=== PATIENT | male | born 1965 | race Two or more races ===

== ENCOUNTER 2017-11-02 12:51 | Emergency (ER) | payer BC ==
[2017-11-02 13:14] VITALS: BP 117/74; PULSE 81; RESP 16; TEMP 98.2; O2SAT 98
--- NOTE | 2017-11-02 13:46 | C.PDOC ---
History Of Present Illness 52 y/o male presents to the ER complaining of difficulty hearing in the left ear. Patient believes that he has wax in his ear. Patient denies having ear pain and trauma. Time Seen by Provider: 11/02/17 13:23 Chief Complaint (Nursing): ENT Problem History Per: Patient History/Exam Limitations: None Onset/Duration Of Symptoms: Days Current Symptoms Are (Timing): Still Present Severity: Moderate Past Medical History Reviewed: Historical Data, Nursing Documentation, Vital Signs Vital Signs: Last Vital Signs Temp 98.2 F 11/02/17 13:12 Pulse 81 11/02/17 13:12 Resp 16 11/02/17 13:12 BP 117/74 11/02/17 13:12 Pulse Ox 98 11/02/17 14:07 - Medical History PMH: Hypercholesterolemia (NO MEDS) Other Surgeries: Hx of surgeries - [facility] IRRIGATION OF EAR (12/29/13) Family History: States: No Known Family Hx - Social History Hx Tobacco Use: No Hx Alcohol Use: No Hx Substance Use: No - Immunization History Hx Tetanus Toxoid Vaccination: No Hx Influenza Vaccination: No Hx Pneumococcal Vaccination: No Review Of Systems Except As Marked, All Systems Reviewed And Found Negative. ENT: Positive for: Other (left ear discomfort) Physical Exam - Physical Exam Appears: Non-toxic, No Acute Distress Skin: Normal Color, Warm, Dry Head: Atraumatic, Normacephalic Eye(s): bilateral: Normal Inspection Ear(s): Left: TM Obscured By Wax (ear irrigated with tap water, TM is clear with succesful removal of cerumen, no signs of infection), Right: Normal Nose: Normal Oral Mucosa: Moist Neck: Supple Chest: Symmetrical Cardiovascular: Rhythm Regular Respiratory: Normal Breath Sounds, No Rales, No Rhonchi, No Wheezing Neurological/Psych: Oriented x3, Normal Speech ED Course And Treatment O2 Sat by Pulse Oximetry: 98 (RA) Pulse Ox Interpretation: Normal Medical Decision Making Medical Decision Making: Progress: Left ear irrigated with tap water. Cerumen was removed successfully. TM is clear , no signs of infection. Patient has been discharged and instructed to follow up with PMD in 2 days. Disposition Counseled Patient/Family Regarding: Studies Performed, Diagnosis, Need For Followup - Disposition Disposition: HOME/ ROUTINE Disposition Time: 13:43 Condition: STABLE Additional Instructions: follow up with your doctor in 2 days call to make an appointment use debrox as needed return to ER if symptoms wosens or progress Prescriptions: Carbamide Peroxide [Debrox 15 Ml] 1 drop OT BID PRN #1 bottle PRN Reason: Other Instructions: Ear Wax Impaction (DC) Forms: [facility] (Mauritian), General Discharge Instructions - Clinical Impression Clinical Impression: Excessive cerumen in ear canal - Scribe Statement The provider has reviewed the documentation as recorded by the Hussainibe [place] Provider Attestation: All medical record entries made by the Hussainibe were at my direction and personally dictated by me. I have reviewed the chart and agree that the record accurately reflects my personal performance of the history, physical exam, medical decision making, and the department course for this patient. I have also personally directed, reviewed, and agree with the discharge instructions and disposition.
== END 2017-11-02 13:54 | disposition home or self-care (01) ==
LOC: C.ER 12:51
DX: H61.22 Impacted cerumen, left ear (principal)